=== PATIENT | male | born 1980 | race African-American/Black ===

== ENCOUNTER 2019-01-21 22:41 | Emergency (ER) | payer OTHER ==
[~2019-01-21] VITALS: Ht 172.7 cm; Wt 81.6 kg
[2019-01-21] MEDS ORDERED: NKM (22:49)
[2019-01-21 22:53] VITALS: BP 182/93
--- NOTE | 2019-01-21 22:53 | NUR ---
ED Nurse Note: Patient walked into ED c/o numbness and swollen of the right hand for the past 3 days, patient does have a cast on the forearm due to having his "right shoulder out of socket". BP of 182/93 but is noncompliant with meds
[2019-01-21] MEDS ORDERED: IBUPROFEN600 MG ORAL (23:26)
[2019-01-21] MEDS ORDERED: NORVASC10 MG ORAL (23:26)
[2019-01-21] MEDS ORDERED: HYDROCHLOROTHIA25 MG ORAL (23:26)
--- NOTE | 2019-01-21 23:27 | Emergency Room Report ---
History of Present Illness General Chief Complaint: Edema Source: Patient Present Illness [facility] This is a 38-year-old male who is right-hand dominant. He presents with chief complaint of right hand pain and numbness. He said that he dislocated his right shoulder about 2 weeks ago. At that time he has numbness and weakness to his shoulder and right hand. He went to [facility] and and had close reduction. Afterward he was placed in a volar splint. Now he said he has some numbness to the lateral aspect of his shoulder and weakness and numbness to his first 3 fingers. He scheduled for an MRI at the end of the month. He says too long for him to wait. Denies any new trauma. Denies any fever or chills. Denies any nausea vomiting. Allergies: Coded Allergies: No Known Allergies (Unverified , 01/21/19) Patient History Past Medical History: see triage record, old chart reviewed Past Surgical History: other Pertinent Family History: none Social History: Denies: smoking Immunizations: other Reviewed Nursing Documentation: PMH: Agreed; PSxH: Agreed Nursing Documentation-PM Past Medical History: No History, Except For Hx Hypertension: Yes Review of Systems Eye: Denies: eye pain, blurred vision ENT: Denies: ear pain, nose congestion, throat swelling Respiratory: Denies: cough, shortness of breath Cardiovascular: Denies: chest pain, palpitations Gastrointestinal: Denies: abdominal pain, diarrhea, nausea, vomiting Musculoskeletal: Reports: joint pain, muscle pain; Denies: back pain Skin: Denies: rash Neurological: Denies: headache, numbness Endocrine: Denies: increased thirst, increased urine Hematologic/Lymphatic: Denies: easy bruising All Other Systems: negative except mentioned in HPI Physical Exam Vital Signs Date Time Temp Pulse Resp B/P (MAP) Pulse Ox O2 Delivery O2 Flow Rate FiO2 01/21/19 22:43 98.2 100 18 98 Room Air 01/21/19 22:53 182/93 vitals with high blood pressure Sp02 EP Interpretation: reviewed, normal General Appearance: well appearing, no apparent distress, alert Head: normocephalic, atraumatic Eyes: bilateral eye PERRL, bilateral eye EOMI ENT: hearing grossly normal, normal pharynx Neck: full range of motion, supple, no meningismus Respiratory: chest non-tender, lungs clear, normal breath sounds Cardiovascular #1: regular rate, rhythm, no murmur Gastrointestinal: normal bowel sounds, non tender, no mass, no organomegaly, no bruit, non-distended Musculoskeletal: back normal, gait/station normal, other - Right shoulder: There is atrophy to the deltoid area. Slight decreased sensation laterally. No evidence of dislocation. Neurologic: alert, oriented x3 Psychiatric: mood/affect normal Skin: warm/dry Medical Decision Making Diagnostic Impression: Primary Impression: Hypertension Qualified Codes: I10 - Essential (primary) hypertension Additional Impressions: Wrist drop, right wrist Sprain of left shoulder girdle Qualified Codes: S43.92XA - Sprain of unspecified parts of left shoulder girdle, initial encounter ER Course Patient presents with shoulder pain and wrist weakness. He may have injury to the brachial plexus involving the radial nerve and axillary nerve. No evidence of any acute fracture. He does have subluxation of his shoulder joint. No other injury. Patient said he has a history of high blood pressure was taking lisinopril and hydrochlorothiazide. Currently not on any medication for a while. We'll discharge home with blood pressure medication. Other X-Ray Diagnostic Results Other X-Ray Diagnostic Results : X-Ray ordered: Right shoulder x-rays # of Views/Limited Vs Complete: 3 View Indication: Pain EP Interpretation: Yes Interpretation: no dislocation, no soft tissue swelling, no fractures, other - subluxation Impression: Other - subluxation of shoulder joint Electronically Signed by: Bashir Benitez MD Last Vital Signs Date Time Temp Pulse Resp B/P (MAP) Pulse Ox O2 Delivery O2 Flow Rate FiO2 01/21/19 22:53 100 18 Room Air 01/21/19 22:53 98.2 182/93 98 Status: improved Disposition: HOME, SELF-CARE Condition: Stable Scripts Ibuprofen* (MOTRIN*) 600 Mg Tablet 600 MG ORAL THREE TIMES A DAY, #30 TAB 0 Refills Prov: Bashir Benitez MD 01/21/19 Hydrochlorothiazide* (HYDROCHLOROTHIAZIDE*) 25 Mg Tablet 25 MG ORAL DAILY, #90 TAB Prov: Bashir Benitez MD 01/21/19 Amlodipine Besylate (Norvasc) 10 Mg Tablet 10 MG ORAL DAILY, #90 TAB Prov: Bashir Benitez MD 01/21/19 Additional Instructions: Follow-up with your Dr. in 7 days. Get the MRI of your shoulder and wrist. You may need a referral to see a neurologist for further testing to check for nerve damage. Return if symptom worsen. Bashir Benitez MD January 21, 2019 23:27
[2019-01-21 23:38] VITALS: BP 168/94
--- NOTE | 2019-01-21 23:39 | NUR ---
ER DISCHARGE NOTE: Patient is cleared to be discharged per ERMD, pt is aox4, on room air, with stable vital signs. pt was given dc and prescription instructions, pt was able to verbalize understanding, pt id band removed. pt is able to ambulate with steady gait. pt took all belongings.
--- NOTE | 2019-01-22 09:42 | Diagnostic Imaging Report ---
Indication: Right shoulder pain Findings: 2 views of the right shoulder were obtained. No acute fractures, malalignment, erosions or periostitis are identified on the Y view and internal rotation view of the right shoulder. Soft tissues are unremarkable. Impression: Negative for acute injury. Limited evaluation
== END 2019-01-21 23:39 | disposition home or self-care (01) ==
LOC: EMR 22:57
DX: M21.331 Wrist drop, right wrist (principal); S43.92XA Sprain of unspecified parts of left shoulder girdle, initial encounter; I10 Essential (primary) hypertension; R20.0 Anesthesia of skin; X58.XXXA Exposure to other specified factors, initial encounter; Y92.9 Unspecified place or not applicable
CPT/HCPCS: 99283

== ENCOUNTER 2019-07-01 21:15 | Emergency (ER) | payer OTHER ==
[~2019-07-01] VITALS: Ht 165.1 cm; Wt 63.5 kg
[~2019-07-01 21:15] MED LIST: AMLODIPINE BES2.5 MG ORAL; HYDROCHLOROTHIA25 MG ORAL; IBUPROFEN600 MG ORAL; NKM; NORVASC10 MG ORAL
--- NOTE | 2019-07-01 21:16 | NUR ---
ED Nurse Note: PT brought in by [facility] to ED, PT gf was with PT waiting for [facility] transport. PT gf stated "it was arthritis," PT was found diaphoretic, A/O x 3, very anxious, mildy combative, intermittently follows commands. Upon arrival, PT is very anxious, security called by DMITRIY Michaud. No loss of consciousness during transport, VS 171/101, HR 165; O2 sat 95% RA; T approximatey 98.9 oral. PT found in [place] (Jared Gonzalez/Emeterio John). Will continue to monitor PT.
[2019-07-01 21:20] VITALS: BP 200/102
[2019-07-01] MEDS ORDERED: LORazepam Inj 2mg/ml 1ml IV ONE (21:30)
--- NOTE | 2019-07-01 21:39 | Emergency Room Report ---
History of Present Illness General Chief Complaint: Substance Abuse Source: Patient Present Illness HPI Patient is a 38-year-old male brought in by EMS after increased palpitations and agitation. Patient had reportedly been using crystal meth all day. Reports having prior history of hypertension. He states he previously been prescribed Norvasc. He also had been taking hydrochlorthiazide. He reports having generalized body pain and palpitations. Was noted to have elevated blood pressure by EMS. Allergies: Coded Allergies: No Known Allergies (Unverified , 01/21/19) Patient History Past Medical History: see triage record Reviewed Nursing Documentation: PMH: Agreed; PSxH: Agreed Nursing Documentation-PM Past Medical History: No History, Except For Hx Hypertension: Yes Review of Systems All Other Systems: negative except mentioned in HPI Physical Exam Vital Signs Date Time Temp Pulse Resp B/P (MAP) Pulse Ox O2 Delivery O2 Flow Rate FiO2 07/01/19 21:12 98.4 158 19 200/102 (134) 99 Room Air Sp02 EP Interpretation: reviewed, normal General Appearance: normal inspection, well appearing, no apparent distress, alert, GCS 15 Head: atraumatic ENT: normal ENT inspection, hearing grossly normal, normal voice Neck: normal inspection, full range of motion, supple, no bony tend Respiratory: normal inspection, lungs clear, normal breath sounds, no respiratory distress, no retraction, no wheezing Cardiovascular #1: no edema, tachycardia Gastrointestinal: normal inspection, normal bowel sounds, non tender, soft, no guarding, no hernia Genitourinary: no CVA tenderness Musculoskeletal: normal inspection, back normal, normal range of motion Neurologic: normal inspection, alert, oriented x3, responsive, photo intern III-XII nml as tested, speech normal Psychiatric: normal inspection, judgement/insight normal, mood/affect normal Medical Decision Making Diagnostic Impression: Primary Impression: Substance abuse ER Course Patient presented for substance abuse and palpitations. Differential diagnosis include was not limited to drug overdose, arrhythmia, hypertensive crisis among others. Because of complexity of patient's case laboratory tests and imaging studies were ordered. Patient was noted to have elevated blood pressure and agitation. He was given IV Ativan as well as medication due to significant hypertension. Initial heart rate was noted to be greater than 150.Patient was noted to be initially tachycardic. Laboratory testing and IV rate control medications were ordered due to significant tachycardia. Patient initially refused IV medications and patient was given oral Norvasc. Patient was eventually noted to be somewhat delusional. Patient subsequently agreed to IV medications however appeared to have some improvement in tachycardia and blood pressure by that time. He was noted to have improvement in his symptoms over time. Patient refused laboratory testing. He was noted to have improvement in his heart rate and at the time of discharge patient felt better. Patient given prescription for Norvasc. Patient appears to be stable for outpatient management of his blood pressure which appears to be primarily substance related. Last Vital Signs Date Time Temp Pulse Resp B/P (MAP) Pulse Ox O2 Delivery O2 Flow Rate FiO2 07/01/19 21:12 98.4 158 19 200/102 (134) 99 Room Air Status: improved Disposition: HOME, SELF-CARE Condition: Improved Scripts Amlodipine Besylate (Norvasc) 10 Mg Tablet 10 MG ORAL DAILY, #30 TAB Prov: Johnny Dickey MD 07/02/19 Johnny Dickey MD Jul 01, 2019 21:39
[2019-07-01] MEDS: Labetalol 5mg/ml 20ml vial IV ONE ×2 (21:55→21:56)
--- NOTE | 2019-07-01 21:56 | NUR ---
ED Nurse Note: ativan 1mg IV and normodyne IV was not given to patient. medication was wasted. patient refused right before medication was being administered. ER MD is aware.
--- NOTE | 2019-07-01 21:56 | NUR ---
ED Nurse Note: ativan 1mg IV and normodyne IV was not given to patient. medication was wasted. patient refused right before medication was being administered.
--- NOTE | 2019-07-01 21:58 | NUR ---
ED Nurse Note: pt is aggitated, yelling and pacing around the room. pt refused all lab work, however wants to have th IV access remained, but does not want any medication via IV. ERMD aware of situation
--- NOTE | 2019-07-01 22:00 | NUR ---
ED Nurse Note: PT transferred from ED-ortho to ED-bed 7 to be on cardiac monitoring. PT stable, no signs of respiratory distress on RA during transfer. PT gf at bedside.
[2019-07-01 22:10] VITALS: BP 148/98
--- NOTE | 2019-07-01 23:00 | NUR ---
ER Nurse Note: No blood was sent to lab per pt refusal. IV line established by RN; patent. Pt stated he was dehydrated after using meth, fluids were ordered by ERMD and given. Pt tolerated IV fluids well with no reactions but stated he did not want the IV line. Explained to pt the importance of IV line, fluids, and meds to treat patents condition. Pt started refusing and became verbally agressive.
[2019-07-01] MEDS ORDERED: Labetalol 5mg/ml 20ml vial IV ONE (23:45)
[2019-07-02] MEDS ORDERED: NORVASC10 MG ORAL (00:08)
[2019-07-02] MEDS ORDERED: LORazepam Inj 2mg/ml 1ml IV ONE (00:15)
[2019-07-02 00:46] VITALS: BP 138/70
--- NOTE | 2019-07-02 00:46 | NUR ---
ER Nurse Note: Pt seen, treated, medically cleared for discharge by ERMD. Discharge instuctions and prescriptions given with repeat verbalization by pt. Emphasized to follow up with primay care provider. Pt a&ox4, VSS, no signs of distress. ID band removed. IV removed; site clean and bandaged. All questions answered per pt's questions. Pt left with all belongings, left with own transportation.
== END 2019-07-02 00:46 | disposition home or self-care (01) ==
LOC: EDBD 21:15 → EMR 23:46
DX: F15.10 Other stimulant abuse, uncomplicated (principal); I10 Essential (primary) hypertension
CPT/HCPCS: 96374; 96375; Z7502; 99284

== ENCOUNTER 2019-11-12 11:30 | Emergency (ER) | payer OTHER ==
[~2019-11-12] VITALS: Ht 170.2 cm; Wt 83.9 kg
[2019-11-12 11:40] VITALS: BP 141/81
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
[2019-11-12] MEDS ORDERED: Methocarbamol 500mg tab ORAL ONE (12:45)
[2019-11-12] MEDS ORDERED: IBUPROFEN600 MG ORAL (12:53)
[2019-11-12] MEDS ORDERED: ROBAXIN-750750 MG PO (12:53)
[2019-11-12 13:10] VITALS: BP 136/71
--- NOTE | 2019-11-12 13:11 | NUR ---
ED Nurse Note: Pt cleared by health care Provider for discharge. Patient verbalzied improved pain level to 3/10. DC instructions/prescription was given and explained to pt and verbalized understanding of teachings. All medical deviecs such as ID band removed. Pt is AAO x4, ambulatory and left with all personal belongings.
== END 2019-11-12 13:10 | disposition home or self-care (01) ==
LOC: EMR 13:10
DX: S39.012A Strain of muscle, fascia and tendon of lower back, initial encounter (principal); M62.830 Muscle spasm of back; V43.52XA Car driver injured in collision with other type car in traffic accident, initial encounter; Y92.410 Unspecified street and highway as the place of occurrence of the external cause; I10 Essential (primary) hypertension
CPT/HCPCS: 99283

== ENCOUNTER 2020-08-06 16:09 | Emergency (ER) | payer OTHER ==
[~2020-08-06] VITALS: Ht 172.7 cm; Wt 81.6 kg
[~2020-08-06 16:09] MED LIST changes: +ROBAXIN-750750 MG PO
[2020-08-06 16:28] VITALS: BP 137/89
--- NOTE | 2020-08-06 16:56 | Emergency Room Report ---
History of Present Illness General Chief Complaint: Male Urogenital Problems Source: Patient Present Illness HPI 40 YO male presents to the ED c/o exposure to HIV. Pt. reports having unprotected intercourse last night with a person whom he found out to be positive for HIV. Pt. is unsure if there was any trauma/ bleeding in the genital area. Pt. denies hx of HIV himself. He reports he was tested prior to this partner and was negative. Pt. denies suspicion for any other STD at the time. He Denies Penile dc, urea, hematuria, abdominal pain, genital sores or rashes. Patient denies testicular pain or swelling. He reports past medical history of high blood pressure. Denies fevers or chills. Allergies: Coded Allergies: No Known Allergies (Unverified , 01/21/19) COVID-19 Screening Contact w/high risk pt: No Experienced COVID-19 symptoms?: No COVID-19 Testing performed DECORATOR HAND: No Patient History Past Medical History: see triage record Past Surgical History: none Pertinent Family History: none Immunizations: UTD Reviewed Nursing Documentation: PMH: Agreed; PSxH: Agreed Nursing Documentation-PMH Hx Hypertension: Yes Review of Systems All Other Systems: negative except mentioned in HPI Physical Exam Vital Signs Date Time Temp Pulse Resp B/P (MAP) Pulse Ox O2 Delivery O2 Flow Rate FiO2 08/06/20 16:12 98.2 110 19 141/90 (107) 98 Room Air Sp02 EP Interpretation: reviewed, normal General Appearance: no apparent distress, alert, GCS 15, non-toxic Head: normocephalic, atraumatic Eyes: bilateral eye normal inspection, bilateral eye PERRL ENT: hearing grossly normal, normal voice Neck: full range of motion Respiratory: chest non-tender, lungs clear, normal breath sounds, speaking full sentences Cardiovascular #1: regular rate, rhythm Gastrointestinal: non tender, soft Genitourinary: normal inspection, no CVA tenderness, deferred - genital exam is deferred by pt. Musculoskeletal: back normal, normal range of motion, gait/station normal, non- tender Neurologic: alert, motor strength/tone normal, oriented x3, sensory intact, responsive, speech normal Psychiatric: judgement/insight normal Skin: no rash Lymphatic: no adenopathy Medical Decision Making PA Attestation Dr. Stanton is my supervising Physician whom patient management has been discussed with. Diagnostic Impression: Primary Impression: Exposure to HIV ER Course 40 YO male presents to the ED c/o exposure to HIV. Pt. reports having unprotected intercourse last night with a person whom he found out to be positive for HIV. Pt. is unsure if there was any trauma/ bleeding in the genital area. Pt. denies hx of HIV himself. He reports he was tested prior to this partner and was negative. Pt. denies suspicion for any other STD at the time. He Denies Penile dc, urea, hematuria, abdominal pain, genital sores or rashes. Patient denies testicular pain or swelling. He reports past medical history of high blood pressure. Denies fevers or chills. Ddx considered but are not limited to UTi , Urethritis, LGV, STI, Stone, Cystitis, prostatitis Vital signs: are WNL, pt. is afebrile H&PE are most consistent with high risk exposure to person with HIV ORDERS: - Rapid HIV: NEGATIVE ED INTERVENTIONS: -d/w pt. regarding PEP course, and possible side effects. Also d/w pt. the importance of repeated follow up HIV testing. PT. was given abundant [facility] info regarding the testing and treatment of STD's including HIV. D/w pt. possible financial assistance for the PEP medications through the [facility]. DISCHARGE: At this time pt. is stable for d/c to home. Will provide printed patient care instructions, and any necessary prescriptions. Care plan and follow up instructions have been discussed with the patient prior to discharge. Last Vital Signs Date Time Temp Pulse Resp B/P (MAP) Pulse Ox O2 Delivery O2 Flow Rate FiO2 08/06/20 16:28 98.2 74 18 137/89 97 Room Air Disposition: HOME, SELF-CARE Condition: Stable Scripts Ritonavir (NORVIR) 100 Mg Tablet 100 MG ORAL ONCE, #30 TAB Prov: Elma Dominguez 08/06/20 Darunavir Ethanolate (PREZISTA) 800 Mg Tablet 800 MG ORAL DAILY, #30 TAB Prov: Elma Dominguez 08/06/20 Emtricitabine/Tenofovir 200-300MG* (TRUVADA 200-300MG*) 1 Each Tablet 1 TAB ORAL DAILY, #30 TAB Prov: Elma Dominguez 08/06/20 Referrals: [facility],REFERRING (PCP) Patient Instructions: HIV Infection and AIDS Elma Dominguez Aug 06, 2020 16:56
[2020-08-06] MEDS ORDERED: PREZISTA800 MG ORAL (17:04)
[2020-08-06] MEDS ORDERED: NORVIR100 M2 ORAL (17:04)
[2020-08-06] MEDS ORDERED: TRUVADA 200 MG1 EAC1 ORAL (17:04)
[2020-08-06 17:21] VITALS: BP 132/84
== END 2020-08-06 17:22 | disposition home or self-care (01) ==
LOC: EMR 16:33
DX: Z20.6 Contact with and (suspected) exposure to human immunodeficiency virus [HIV] (principal); I10 Essential (primary) hypertension
CPT/HCPCS: 86703; Z7502; 99282